=== PATIENT | female | born 1980 | race Caucasian/White ===

== ENCOUNTER 2017-04-29 21:18 | Emergency (ER) | payer SELFPAY ==
[~2017-04-29] VITALS: Ht 162.6 cm; Wt 72.6 kg
[2017-04-29 21:23] VITALS: BP 122/66
[2017-04-29] MEDS ORDERED: CLINDAMYCIN 900 MG/6 ML VIAL ONE (21:52)
[2017-04-29] MEDS ORDERED: CLINDAMYCIN 900 MG/6 ML VIAL IM ONE (22:00)
== END 2017-04-29 22:05 | disposition home or self-care (01) ==
LOC: ER 21:21
DX: L03.114 Cellulitis of left upper limb (principal)
CPT/HCPCS: 96372; 99283; A4606; J3490; Z7610

== ENCOUNTER 2021-08-31 16:10 | Emergency (ER) | payer MEDICAID ==
[~2021-08-31] VITALS: Ht 162.6 cm; Wt 83.9 kg
[2021-08-31 17:25] VITALS: BP 129/93
[2021-08-31 18:18] LABS: BILIRUBIN,URINE NEGATIVE (NEGATIVE); COLOR,URINE YELLOW (YELLOW); LEUKOCYTE ESTERASE ,URINE NEGATIVE (NEGATIVE); NITRITE, URINE NEGATIVE (NEGATIVE); PROTEIN,URINE NEGATIVE (NEGATIVE); UGLUCOSE NEGATIVE (NEGATIVE); UROBILINOGEN,URINE 0.2 EU/dL (0.2)
[2021-08-31 19:02] LABS: BACTERIA,URINE None seen /HPF (None Seen); RBC,URINE 0-2 /HPF (0-2); WBC,URINE 0-2 /HPF (0-3)
[2021-08-31] MEDS ORDERED: PHEN-705 PO (19:09)
[2021-08-31] MEDS ORDERED: CIPR-262 PO (19:09)
== END 2021-08-31 19:25 | disposition home or self-care (01) ==
LOC: ER 16:13
DX: N30.90 Cystitis, unspecified without hematuria (principal); J45.909 Unspecified asthma, uncomplicated; Z79.2 Long term (current) use of antibiotics; Z79.899 Other long term (current) drug therapy
CPT/HCPCS: 81001; 84703-TC